=== PATIENT | male | born 1945 ===

== ENCOUNTER 2021-07-16 21:44 | Inpatient (IN) | payer MEDICARE, OTHER, SELFPAY ==
[2021-07-16] MEDS ORDERED: Dexamethasone 20 MG/5 ML VIAL ONE (22:38)
[2021-07-16] MEDS ORDERED: Rocuronium Bromide 10 MG/ML (10ML VIAL) ONE (22:38)
[2021-07-16] MEDS ORDERED: Ondansetron PF 4 MG/2 ML Vial ONE (22:38)
[2021-07-16] MEDS ORDERED: Metoclopramide HCl 10 MG/2 ML VIAL ONE (22:38)
[2021-07-16] MEDS ORDERED: Glycopyrrolate 0.2 MG/ML 5 ML SYRINGE ONE (22:38)
[2021-07-16] MEDS ORDERED: Lidocaine 1% PF 5 ML VIAL ONE (22:38)
[2021-07-17] MEDS ORDERED: hydrALAZINE 20 MG/ML VIAL SLOW IVP PRN (01:09)
[2021-07-17] MEDS ORDERED: Dextrose 5% in Water 1,000 ML IV PRN (01:09)
[2021-07-17] MEDS ORDERED: Morphine 2 MG/ML VIAL SLOW IVP PRN (01:09)
[2021-07-17] MEDS ORDERED: Dextrose 50% Abboject 50 ML SYRINGE SLOW IVP PRN (01:09)
[2021-07-17] MEDS ORDERED: Promethazine HCl 25 MG/ML VIAL IM PRN (01:09)
[2021-07-17] MEDS ORDERED: Morphine 4 MG/ML VIAL SLOW IVP PRN (01:09)
[2021-07-17] MEDS ORDERED: Acetaminophen 650 MG Suppository PR PRN (01:09)
[2021-07-17] MEDS ORDERED: Ondansetron PF 4 MG/2 ML Vial IVP PRN (01:09)
[2021-07-17] MEDS ORDERED: D5 1/2 NS w/20 mEq KCL 1,000 ML IV SCH (01:15)
[2021-07-17] MEDS ORDERED: D5 1/2 NS w/20 mEq KCL 1,000 ML ONE (01:15)
[2021-07-17] MEDS ORDERED: Norepinephrine 8 MG/0.9% NS 250 ML ONE (02:09)
[2021-07-17] MEDS ORDERED: Norepinephrine 8 MG/0.9% NS 250 ML IVPB SCH (02:30)
[2021-07-17] MEDS ORDERED: Piperacillin/Tazobactam 3.375 GM in Sodium Chloride 0.9% 100 ML IVPB SCH ×3 (02:30→07:10)
[2021-07-17] MEDS ORDERED: Sodium Chloride 0.9% 1,000 ML IV SCH (02:30)
[2021-07-17] MEDS ORDERED: Piperacillin/Tazobactam 3.375 GM VIAL ONE (02:33)
[2021-07-17] MEDS ORDERED: Sodium Chloride 0.9% 100 ML ONE (02:33)
[2021-07-17] MEDS: Sodium Chloride 0.9% 1,000 ML IV SCH ×3 (05:01→17:28)
[2021-07-17] MEDS: Acetaminophen 325 MG TAB PO PRN ×2 (05:41→21:07)
[2021-07-17 07:32] LABS: Hemoglobin 13.7 g/dL (14.0-18.0); Mean Corpuscular HGB CONC 33.3 g/dL (32.0-36.0); Mean Corpuscular Hemoglobin 30.1 pg (27.0-31.0); Mean Corpuscular Volume 90.3 fL (78.0-98.0); Mean Platelet Volume 9.5 fL (7.4-10.4); Platelet Count 176 thou/uL (130-400); Red Blood Cell (RBC) Count 4.55 mill/uL (4.70-6.10); White Blood Cell (WBC) Count 13.5 thou/uL (4.8-10.8)
[2021-07-17 07:49] LABS: Anion Gap 13 mmol/L (10-20); BUN (Urea Nitrogen) 14 mg/dL (8.4-25.7); Calc. Creatinine Clearance 69 mL/min (70-130); Carbon Dioxide 18 mmol/L (23-31); Chloride 112 mmol/L (98-107); Glucose 138 mg/dL (83-110); Potassium 3.6 mmol/L (3.5-5.1); Sodium 139 mmol/L (136-145)
[2021-07-17 08:11] LABS: Band 50 % (5-11); Lymphocytes 4 % (21-51); MDiff Complete? YES; Metamyelocyte 2 % (0-0); Monocytes 1 % (0-10); Neutrophil 43 % (42-75); Platelet Morphology Comment Appears Adequate; Polychromasia SLIGHT = 2-3 cells (100X) (0-2/hpf); Reflex for Review?? YES; Vacuoles SLIGHT
[2021-07-17] MEDS: Famotidine 20 MG TAB PO SCH ×2 (09:36→21:08)
[2021-07-17] MEDS: Enoxaparin Sodium 40 MG/0.4 ML SYRINGE SC SCH (09:37)
[2021-07-17] MEDS: Famotidine/PF 20 mg/2ml Vial SLOW IVP SCH (09:47)
[2021-07-17] MEDS: Piperacillin/Tazobactam 3.375 GM in Sodium Chloride 0.9% 100 ML IVPB SCH ×2 (14:31→21:06)
[2021-07-18] MEDS: Famotidine/PF 20 mg/2ml Vial SLOW IVP SCH ×2 (02:04→08:27)
[2021-07-18] MEDS: Sodium Chloride 0.9% 1,000 ML IV SCH ×3 (02:04→08:26)
[2021-07-18] MEDS: Piperacillin/Tazobactam 3.375 GM in Sodium Chloride 0.9% 100 ML IVPB SCH ×3 (05:51→20:52)
[2021-07-18 07:44] VITALS: BMI 22.4
[2021-07-18] MEDS: Famotidine 20 MG TAB PO SCH ×2 (08:26→20:52)
[2021-07-18] MEDS: Enoxaparin Sodium 40 MG/0.4 ML SYRINGE SC SCH (08:26)
[2021-07-18 10:05] LABS: Hemoglobin 14.3 g/dL (14.0-18.0); Mean Corpuscular Volume 91.9 fL (78.0-98.0); Red Blood Cell (RBC) Count 4.81 mill/uL (4.70-6.10); White Blood Cell (WBC) Count 13.6 thou/uL (4.8-10.8)
[2021-07-18 10:06] LABS: MDiff Complete? YES; Mean Corpuscular HGB CONC 32.4 g/dL (32.0-36.0); Mean Corpuscular Hemoglobin 29.8 pg (27.0-31.0); Mean Platelet Volume 10.3 fL (7.4-10.4); Platelet Count 139 thou/uL (130-400); RBC Distribution Width 13.2 % (11.5-14.5)
[2021-07-18 10:19] LABS: Anion Gap 14 mmol/L (10-20); BUN (Urea Nitrogen) 19 mg/dL (8.4-25.7); Calc. Creatinine Clearance 67 mL/min (70-130); Calcium 8.3 mg/dL (7.8-10.44); Carbon Dioxide 18 mmol/L (23-31); Chloride 111 mmol/L (98-107); Glucose 100 mg/dL (83-110); Sodium 139 mmol/L (136-145)
[2021-07-18 10:20] LABS: ALT (SGPT) 23 U/L (8-55); AST (SGOT) 32 U/L (5-34); Albumin 3.3 g/dL (3.4-4.8); Alkaline Phosphatase 46 U/L (40-110); Bilirubin, Total 0.7 mg/dL (0.2-1.2); Globulin 3.1 g/dL (2.4-3.5); Magnesium 1.9 mg/dL (1.6-2.6); Protein, Total 6.4 g/dL (5.8-8.1)
[2021-07-18 10:22] LABS: Band 20 % (5-11); Lymphocytes 8 % (21-51); Monocytes 7 % (0-10); Neutrophil 65 % (42-75); Polychromasia SLIGHT = 2-3 cells (100X) (0-2/hpf)
[2021-07-18 10:23] LABS: Platelet Morphology Comment Appears Adequate
[2021-07-18 10:24] LABS: Phosphorus 2.2 mg/dL (2.3-4.7)
[2021-07-18] MEDS: Atorvastatin Calcium 10 MG TAB PO SCH (20:52)
[2021-07-19] MEDS: Piperacillin/Tazobactam 3.375 GM in Sodium Chloride 0.9% 100 ML IVPB SCH ×3 (05:31→21:17)
[2021-07-19 06:06] LABS: Anion Gap 12 mmol/L (10-20); BUN (Urea Nitrogen) 23 mg/dL (8.4-25.7); Calc. Creatinine Clearance 72 mL/min (70-130); Calcium 7.8 mg/dL (7.8-10.44); Carbon Dioxide 20 mmol/L (23-31); Chloride 113 mmol/L (98-107); Glucose 91 mg/dL (83-110); Potassium 3.6 mmol/L (3.5-5.1); Sodium 141 mmol/L (136-145)
[2021-07-19 06:09] LABS: Hemoglobin 14.2 g/dL (14.0-18.0); Mean Corpuscular HGB CONC 33.4 g/dL (32.0-36.0); Mean Corpuscular Volume 89.8 fL (78.0-98.0); Mean Platelet Volume 9.6 fL (7.4-10.4); Platelet Count 158 thou/uL (130-400); RBC Distribution Width 13.2 % (11.5-14.5); Red Blood Cell (RBC) Count 4.73 mill/uL (4.70-6.10); White Blood Cell (WBC) Count 11.5 thou/uL (4.8-10.8)
[2021-07-19 06:26] LABS: Band 15 % (5-11); Lymphocytes 4 % (21-51); MDiff Complete? YES; Monocytes 6 % (0-10); Neutrophil 75 % (42-75)
[2021-07-19] MEDS: Famotidine 20 MG TAB PO SCH ×2 (08:29→21:16)
[2021-07-19] MEDS: Enoxaparin Sodium 40 MG/0.4 ML SYRINGE SC SCH (08:29)
[2021-07-19] MEDS: Atorvastatin Calcium 10 MG TAB PO SCH (21:17)
[2021-07-20] MEDS: Piperacillin/Tazobactam 3.375 GM in Sodium Chloride 0.9% 100 ML IVPB SCH ×3 (05:35→21:04)
[2021-07-20 07:41] LABS: Hemoglobin 13.8 g/dL (14.0-18.0); Mean Corpuscular HGB CONC 33.3 g/dL (32.0-36.0); Mean Corpuscular Volume 90.3 fL (78.0-98.0); Mean Platelet Volume 9.8 fL (7.4-10.4); Platelet Count 162 thou/uL (130-400); Red Blood Cell (RBC) Count 4.59 mill/uL (4.70-6.10)
[2021-07-20] MEDS: Famotidine 20 MG TAB PO SCH ×2 (09:00→20:32)
[2021-07-20] MEDS: Enoxaparin Sodium 40 MG/0.4 ML SYRINGE SC SCH (09:01)
[2021-07-20 09:16] LABS: Band 18 % (5-11); Eosinophils 1 % (0-10); Lymphocytes 6 % (21-51); MDiff Complete? YES; Monocytes 3 % (0-10); Neutrophil 71 % (42-75); Ovalocytes SLIGHT = 2-5 cells (100X) (0-1/hpf); Platelet Morphology Comment Appears Adequate; Reactive Lymphocytes 1 % (0-10); Tear Drops SLIGHT = 2-5 cells (100X) (0-1/hpf)
[2021-07-20] MEDS ORDERED: Saccharomyces boulardii 250 MG CAP PO SCH (11:15)
[2021-07-20] MEDS ORDERED: Polyethylene Glycol 3350 17 GM Packet PO SCH (11:15)
[2021-07-20] MEDS ORDERED: Docusate 100 MG CAP PO SCH (11:15)
[2021-07-20] MEDS: Atorvastatin Calcium 10 MG TAB PO SCH (20:31)
[2021-07-20] MEDS: Docusate 100 MG CAP PO SCH (20:31)
[2021-07-21] MEDS: Piperacillin/Tazobactam 3.375 GM in Sodium Chloride 0.9% 100 ML IVPB SCH (06:20)
[2021-07-21 08:36] LABS: Hemoglobin 13.1 g/dL (14.0-18.0); Mean Corpuscular HGB CONC 33.3 g/dL (32.0-36.0); Mean Corpuscular Hemoglobin 30.1 pg (27.0-31.0); Mean Corpuscular Volume 90.4 fL (78.0-98.0); Mean Platelet Volume 9.2 fL (7.4-10.4); Platelet Count 178 thou/uL (130-400); RBC Distribution Width 13.1 % (11.5-14.5); Red Blood Cell (RBC) Count 4.35 mill/uL (4.70-6.10); White Blood Cell (WBC) Count 8.8 thou/uL (4.8-10.8)
[2021-07-21 08:56] LABS: Band 5 % (5-11); Eosinophils 1 % (0-10); Lymphocytes 14 % (21-51); MDiff Complete? YES; Monocytes 6 % (0-10); Neutrophil 73 % (42-75); Platelet Morphology Comment Appears Adequate; RBC Morphology Normal; Reactive Lymphocytes 1 % (0-10)
[2021-07-21] MEDS ORDERED: Polyethylene Glycol 3350 17 GM Packet PO SCH (09:00)
[2021-07-21] MEDS ORDERED: Saccharomyces boulardii 250 MG CAP PO SCH (09:00)
[2021-07-21 09:38] VITALS: TEMP 98.1
[2021-07-21] MEDS: Docusate 100 MG CAP PO SCH (10:50)
[2021-07-21] MEDS: Enoxaparin Sodium 40 MG/0.4 ML SYRINGE SC SCH (10:50)
[2021-07-21] MEDS: Famotidine 20 MG TAB PO SCH (10:50)
[2021-07-21 13:07] VITALS: BP 130/78
== END 2021-07-21 16:30 | disposition home or self-care (01) | DRG 853 ==
LOC: SDC/OP 21:44 → CCU 07-17 01:48 → SJJU 07-18 16:10
PROVIDERS: ADMIT Surgery; ATTEND Surgery
PROC: 0DTJ4ZZ Resection of Appendix, Percutaneous Endoscopic Approach (ICD-10-PCS; principal; 2021-07-16)
PROC: 3E03329 Introduction of Other Anti-infective into Peripheral Vein, Percutaneous Approach (ICD-10-PCS; 2021-07-16)
PROC: 3E033XZ Introduction of Vasopressor into Peripheral Vein, Percutaneous Approach (ICD-10-PCS; 2021-07-16)
DX: A41.51 Sepsis due to Escherichia coli [E. coli] (principal); K35.33 Acute appendicitis with perforation, localized peritonitis, and gangrene, with abscess; R65.21 Severe sepsis with septic shock; K35.80 Unspecified acute appendicitis; K56.7 Ileus, unspecified; Z20.822 Contact with and (suspected) exposure to COVID-19; E78.5 Hyperlipidemia, unspecified; I10 Essential (primary) hypertension; Z88.1 Allergy status to other antibiotic agents
CPT/HCPCS: 36415; 80048; 80053; 83735; 83880; 84100; 85025; 85060; 87070; 87077; 87186; 87205; 88304; J1100; J1650; J2370; J2405; J2543; J2765; J3480; J3490; J7050; P9045; S0020